=== PATIENT | female | born 1960 ===

== ENCOUNTER 2017-08-17 10:30 | Inpatient (IN) | payer MEDICARE, BC ==
[2017-08-15 18:13] VITALS: BMI 22.6
--- NOTE | 2017-08-17 11:07 | CP.PCM.HP ---
History of Present Illness - History of Present Illness History of Present Illness: CC - needs dialysis HPI - 57 year old female with past medical history as listed below was admitted to [facility] for shortness of breath. Patient is requiring dialysis today and was transferred here to [facility] for that. She will be transferred back to [place] after dialysis. No complaints at this time. PMHx - ESRD on dialysis (T, Th, Sat), pulmonary edema, hypertension, cirrhosis, CHF, COPD, and gastritis, hyperlipidemia Meds - per EMR Surg - c sections x 2, cholecystectomy, b/l hip surgery, tonsillectomy, fistula Allergies - ASA, cipro, citrus, enalapril, heparin, latex, pEN, sulfa, vevothyroxine, tylenol, codeine, lovenox, iodine, flu vaccine Social - denies alcohol or drugs use, smokes 1/2 pack of cigarettes daily PMD - Dr. Skelton Present on Admission - Present on Admission Any Indicators Present on Admission: No Review of Systems - Constitutional Constitutional: As Per HPI. absent: Chills, Fever - Cardiovascular Cardiovascular: absent: Chest Pain, Chest Pain at Rest - Respiratory Respiratory: absent: Dyspnea, Dyspnea on Exertion - Gastrointestinal Gastrointestinal: absent: Abdominal Pain - Neurological Neurological: absent: Dizziness, Numbness, Weakness Past Patient History - Infectious Disease Hx of Infectious Diseases: None - Tetanus Immunizations Tetanus Immunization: Up to Date - Past Medical History & Family History Past Medical History?: Yes - Past Social History Smoking Status: Former Smoker - CARDIAC Hx Cardiac Disorders: Yes Hx Congestive Heart Failure: Yes Hx Hypertension: Yes - PULMONARY Hx Respiratory Disorders: Yes Hx Chronic Obstructive Pulmonary Disease (COPD): Yes - NEUROLOGICAL Hx Neurological Disorder: No - HEENT Hx HEENT Problems: Yes Hx Blind: Yes (partial, left eye) - RENAL Hx Chronic Kidney Disease: Yes Hx Dialysis: Yes Date of Last Dialysis Treatment: 07/25/17 Hx Renal Failure: Yes (Hemodialysis (T, TH,Sat)-SHUNT LEFT UPPER ARM.) - ENDOCRINE/METABOLIC Hx Endocrine Disorders: Yes (parathyroid) - HEMATOLOGICAL/ONCOLOGICAL Hx Blood Disorders: Yes Hx Anemia: Yes - INTEGUMENTARY Hx Dermatological Problems: Yes (LEFT UPPER ARM SHUNT) Other/Comment: CALCIPHYLAXIS-DRY ROUND RASH ALL OVER HER BODY,ARMS,LEG. BILATERAL LEG EDEMA +3,SKIN TIGHTNESS,DISCOLORED DARK BROWN SKIN.TIGHT. - MUSCULOSKELETAL/RHEUMATOLOGICAL Hx Falls: Yes - GASTROINTESTINAL Hx Gastrointestinal Disorders: Yes (GI BLEED,SBO,APPENDICITIS,GIBBONS'S ESOPHAGUS) - GENITOURINARY/GYNECOLOGICAL Hx Genitourinary Disorders: Yes (OLIGURIA) - PSYCHIATRIC Hx Psychophysiologic Disorder: Yes (SMOKED CIGARETTES QUIT ) Hx Substance Use: No - SURGICAL HISTORY Hx Section: Yes (x2) Hx Cholecystectomy: Yes Hx Orthopedic Surgery: Yes (bilateral hips 05/19) Hx Tonsillectomy: Yes Other/Comment: left arm fistula/bicep - ANESTHESIA Hx Anesthesia Reactions: No Hx Malignant Hyperthermia: No Meds Allergies/Adverse Reactions: Allergies Allergy/AdvReac Type Severity Reaction Status Date / Time aspirin Allergy Severe ANAPHYLAXIS Verified 08/15/17 17:41 ciprofloxacin Allergy Severe ANAPHYLAXIS Verified 08/15/17 17:41 [place] And Derivatives Allergy Severe ANAPHYLAXIS Verified 08/15/17 17:41 enalapril Allergy Severe HIVES Verified 08/15/17 17:41 heparin Allergy Severe ANAPHYLAXIS Verified 08/15/17 17:41 latex Allergy Severe ANAPHYLAXIS Verified 08/15/17 17:41 Penicillins Allergy Severe ANAPHYLAXIS Verified 08/15/17 17:41 Sulfa (Sulfonamide Allergy Severe ANAPHYLAXIS Verified 08/15/17 17:41 Antibiotics) levothyroxine sodium Allergy Intermediate RASH Verified 08/15/17 17:41 [From Levoxyl] acetaminophen Allergy Mild RASH Verified 08/15/17 17:41 codeine Allergy Mild RASH Verified 08/15/17 17:41 enoxaparin Allergy Mild RASH Verified 08/15/17 17:41 iodine Allergy Mild RASH Verified 08/15/17 17:41 influenza virus vaccine, Allergy hives Verified 08/15/17 17:41 specific Physical Exam - Constitutional Appears: Non-toxic, No Acute Distress - Head Exam Head Exam: ATRAUMATIC, NORMAL INSPECTION - Eye Exam Eye Exam: EOMI - ENT Exam ENT Exam: Mucous Membranes Moist - Respiratory Exam Additional comments: b/l mild to lower lung field inspriatory crackles - Cardiovascular Exam Cardiovascular Exam: REGULAR RHYTHM, +S1, +S2 - GI/Abdominal Exam GI & Abdominal Exam: Normal Bowel Sounds, Soft. absent: Tenderness - Extremities Exam Additional comments: b/l lower leg pitting non pitting edema, left arm AVF thrill - Back Exam Back exam: NORMAL INSPECTION - Neurological Exam Neurological exam: Alert, Oriented x3 - Psychiatric Exam Psychiatric exam: Normal Affect, Normal Mood Assessment & Plan - Assessment and Plan (Free Text) Assessment: ESRD on dialysis Dr. Williamson consulted for dialysis orders. Patient to be dischagred back to [place] post dialysis Discussed with Dr. Reynaldo Rogers.
--- NOTE | 2017-08-17 11:15 | CP.PCM.DIS ---
Provider - Provider Date of Admission: 08/17/17 10:30 Attending physician: Tae Rogers MD Primary care physician: Dr. Skelton Consults: Dr. Williamson - nephrology Time Spent in preparation of Discharge (in minutes): 35 Diagnosis - Discharge Diagnosis (1) ESRD (end stage renal disease) Status: Acute Hospital Course - Hospital Course Hospital Course: CC - needs dialysis HPI - 57 year old female with past medical history as listed below was admitted to [facility] for shortness of breath. Patient is requiring dialysis today and was transferred here to [facility] for that. She will be transferred back to [place] after dialysis. No complaints at this time. PMHx - ESRD on dialysis (T, Th, Sat), pulmonary edema, hypertension, cirrhosis, CHF, COPD, and gastritis, hyperlipidemia Meds - per EMR Surg - c sections x 2, cholecystectomy, b/l hip surgery, tonsillectomy, fistula Allergies - ASA, cipro, citrus, enalapril, heparin, latex, pEN, sulfa, vevothyroxine, tylenol, codeine, lovenox, iodine, flu vaccine Social - denies alcohol or drugs use, smokes 1/2 pack of cigarettes daily PMD - Dr. Skelton Patient had dialysis in the hospital and was discharged after dialysis. Discharge Exam - Head Exam Head Exam: ATRAUMATIC, NORMAL INSPECTION - Eye Exam Eye Exam: EOMI Pupil Exam: NORMAL ACCOMODATION - Respiratory Exam Respiratory Exam: NORMAL BREATHING PATTERN Additional comments: b/l mid to lower lung field inspiratory crackles - Cardiovascular Exam Cardiovascular Exam: REGULAR RHYTHM, +S1, +S2 - GI/Abdominal Exam GI & Abdominal Exam: Normal Bowel Sounds, Soft. absent: Tenderness - Extremities Exam Additional comments: b/l lower leg pitting non pitting edema, left arm AVF thrill Discharge Plan - Follow Up Plan Condition: GOOD Disposition: HOME/ ROUTINE Instructions: Renal Failure Diet (DC)
[2017-08-17 12:34] VITALS: PULSE 70; TEMP 97.5; O2SAT 96
--- NOTE | 2017-08-17 13:30 | CP.PCM.CON ---
History of Present Illness - History of Present Illness History of Present Illness: Consult for ESRD HPI - 57 year old female with past medical history of ESRD that [facility]. She is a pt o fDr. Lauren. She was transferred to [facility] for acute HD. She denies n/v. She states her breathing is mildly improved sine her admission. She denies any fever or chills. She states she is compliant w/ hd. She had 2 hours o fHd yesterday and was scheduled for 2 hours today. ros: a full detailed ROS is negative except as in my hpi PMHx - ESRD on dialysis (T, Th, Sat), CHF, HTN, liver disease COPD, and gastritis, hyperlipidemia Meds - see below all: as below Social - denies alcohol or drugs use, smokes 1/2 pack of cigarettes daily famhx: no esrd pe:vs as below gen: nad sclera anicteric op clear neck supple cv: +s1+s2 lungs reduced bs at bases abd soft ext: 1+ edema neuro: a+ox3 psych: flat affect skin: eyrthema lower extremity labs and imaging reviewed imp: esrd / volume overload / chf / anemia / secondary hyperpara plan: hd 2 kg uf monitor volume status post hd aranesp weekly phos at goal. f/u w/ Dr. Lauren after transfer to [place]. Past Patient History - Infectious Disease Hx of Infectious Diseases: None - Tetanus Immunizations Tetanus Immunization: Up to Date - Past Medical History & Family History Past Medical History?: Yes - Past Social History Smoking Status: Former Smoker - CARDIAC Hx Cardiac Disorders: Yes Hx Congestive Heart Failure: Yes Hx Hypertension: Yes - PULMONARY Hx Respiratory Disorders: Yes Hx Chronic Obstructive Pulmonary Disease (COPD): Yes - NEUROLOGICAL Hx Neurological Disorder: No - HEENT Hx HEENT Problems: Yes Hx Blind: Yes (partial, left eye) - RENAL Hx Chronic Kidney Disease: Yes Hx Dialysis: Yes Date of Last Dialysis Treatment: 07/25/17 Hx Renal Failure: Yes (Hemodialysis (T, TH,Sat)-SHUNT LEFT UPPER ARM.) - ENDOCRINE/METABOLIC Hx Endocrine Disorders: Yes (parathyroid) - HEMATOLOGICAL/ONCOLOGICAL Hx Blood Disorders: Yes Hx Anemia: Yes - INTEGUMENTARY Hx Dermatological Problems: Yes (LEFT UPPER ARM SHUNT) Other/Comment: CALCIPHYLAXIS-DRY ROUND RASH ALL OVER HER BODY,ARMS,LEG. BILATERAL LEG EDEMA +3,SKIN TIGHTNESS,DISCOLORED DARK BROWN SKIN.TIGHT. - MUSCULOSKELETAL/RHEUMATOLOGICAL Hx Falls: Yes - GASTROINTESTINAL Hx Gastrointestinal Disorders: Yes (GI BLEED,SBO,APPENDICITIS,GIBBONS'S ESOPHAGUS) - GENITOURINARY/GYNECOLOGICAL Hx Genitourinary Disorders: Yes (OLIGURIA) - PSYCHIATRIC Hx Psychophysiologic Disorder: Yes (SMOKED CIGARETTES QUIT ) Hx Substance Use: No - SURGICAL HISTORY Hx Section: Yes (x2) Hx Cholecystectomy: Yes Hx Orthopedic Surgery: Yes (bilateral hips 05/19) Hx Tonsillectomy: Yes Other/Comment: left arm fistula/bicep - ANESTHESIA Hx Anesthesia Reactions: No Hx Malignant Hyperthermia: No Meds Allergies/Adverse Reactions: Allergies Allergy/AdvReac Type Severity Reaction Status Date / Time aspirin Allergy Severe ANAPHYLAXIS Verified 08/15/17 17:41 ciprofloxacin Allergy Severe ANAPHYLAXIS Verified 08/15/17 17:41 [place] And Derivatives Allergy Severe ANAPHYLAXIS Verified 08/15/17 17:41 enalapril Allergy Severe HIVES Verified 08/15/17 17:41 heparin Allergy Severe ANAPHYLAXIS Verified 08/15/17 17:41 latex Allergy Severe ANAPHYLAXIS Verified 08/15/17 17:41 Penicillins Allergy Severe ANAPHYLAXIS Verified 08/15/17 17:41 Sulfa (Sulfonamide Allergy Severe ANAPHYLAXIS Verified 08/15/17 17:41 Antibiotics) levothyroxine sodium Allergy Intermediate RASH Verified 08/15/17 17:41 [From Levoxyl] acetaminophen Allergy Mild RASH Verified 08/15/17 17:41 codeine Allergy Mild RASH Verified 08/15/17 17:41 enoxaparin Allergy Mild RASH Verified 08/15/17 17:41 iodine Allergy Mild RASH Verified 08/15/17 17:41 influenza virus vaccine, Allergy hives Verified 08/15/17 17:41 specific Results - Vital Signs Recent Vital Signs: Last Vital Signs Temp 97.5 F L 08/17/17 11:00 Pulse 70 08/17/17 11:00 Resp 16 08/17/17 12:25 BP 137/75 08/17/17 12:25 Pulse Ox 96 08/17/17 12:25
--- NOTE | 2017-08-17 13:32 | CP.PCM.PN ---
Subjective - Date & Time of Evaluation Date of Evaluation: 08/17/17 Time of Evaluation: 13:05 - Subjective Subjective: DIALYSIS NOTE seen on dialysis 2kg uf 2 hours treatment Objective - Vital Signs/Intake and Output Vital Signs (last 24 hours): Temp Pulse Resp BP Pulse Ox 97.5 F L 70 16 137/75 96 08/17/17 11:00 08/17/17 11:00 08/17/17 12:25 08/17/17 12:25 08/17/17 12:25
[2017-08-17 13:51] VITALS: BP 137/70; RESP 18
== END 2017-08-17 14:36 | disposition home or self-care (01) | DRG 291 ==
LOC: C.3T 10:30
PROVIDERS: ADMIT Family Medicine; ATTEND Family Medicine
PROC: 5A1D70Z Performance of Urinary Filtration, Intermittent, Less than 6 Hours Per Day (ICD-10-PCS; principal; 2017-08-17)
DX: I13.2 Hypertensive heart and chronic kidney disease with heart failure and with stage 5 chronic kidney disease, or end stage renal disease (principal); N18.6 End stage renal disease; I50.9 Heart failure, unspecified; H54.7 Unspecified visual loss; J44.9 Chronic obstructive pulmonary disease, unspecified; E78.5 Hyperlipidemia, unspecified; D64.9 Anemia, unspecified; K74.60 Unspecified cirrhosis of liver; Z99.2 Dependence on renal dialysis; K22.70 Barrett's esophagus without dysplasia; F17.210 Nicotine dependence, cigarettes, uncomplicated

== ENCOUNTER 2017-09-28 22:07 | Inpatient (IN) | payer MEDICARE, BC ==
[2017-09-28 22:08] VITALS: BMI 22.9
--- NOTE | 2017-09-28 22:36 | C.PDOC ---
History Of Present Illness 57 year old female with ESRD currently on dialysis on Saturday, , Saturday is a transfer from [facility] ED. Patient had her dialysis done today during which she started c/o SOB and CP. Patient had work up done at [facility] revealing of a reported whiteout of the lungs. Lab work was unremarkable, normal white count, mild anemia. Patient was afebrile but was initiated on antibiotics for pneumonia. Patient was sent to the ED for further evaluation, attending at [facility] felt like patient should be admitted to a facility that provided dialysis. PMD: Dr. Carey. Chip Drier: Dr. Lauren Tax Collection Coordinator: Dr. Bledsoe Time Seen by Provider: 09/28/17 22:16 Chief Complaint (Nursing): Chest Pain History Per: Patient History/Exam Limitations: no limitations Onset/Duration Of Symptoms: Hrs Current Symptoms Are (Timing): Still Present Quality: "Pain" Associated Symptoms: denies: Nausea, Dyspnea Modifying Factors: None Exacerbating Factors: None Recent travel outside of the [place]: No Additional History Per: Patient Past Medical History Reviewed: Historical Data, Nursing Documentation, Vital Signs Vital Signs: Last Vital Signs Temp 98.0 F 09/28/17 23:37 Pulse 101 H 09/29/17 00:41 Resp 20 09/29/17 00:41 BP 159/84 H 09/28/17 23:37 Pulse Ox 95 09/28/17 23:37 - Medical History PMH: Anemia, Arthritis (hips), Asthma, Bronchitis, Cardia Arrhythmia, CHF, COPD , Crohn's Disease, Gastrointestinal Ulcer (barretts esophagus), Gall Bladder Disease (GALLSTONES), HTN, Hypercholesterolemia, Hypothyroidism, Pancreatitis, Peripheral Edema, Pneumonia, End Stage Renal Disease, Chronic Kidney Disease Denies: Alzheimer's Disease, Anxiety, Bipolar Disorder, Dementia, Depression , Diverticulitis, Emphysema, Fibromyalgia, Fractures, HIV, Hyperthyroidism, Kidney Stones, Migraine, Mitral Valve Prolapse, Osteoporosis, Paranoia, Parkinson's Disease, Post Traumatic Stress Disorder, Schizophrenia, Seizures, Sickle Cell Disease, Sexually Transmitted Disease, Sleep Apnea, TIA Surgical History: Cholecystectomy, Tonsillectomy Denies: Appendectomy, Coronary Stent, Pacemaker - [facility] Procedures (08/23/17) CLOSED ENDOSCOPIC BIOPSY OF LARGE INTESTINE (08/02/11) CONTROL BLEEDING IN GASTROINTESTINAL TRACT, ENDO (02/14/17) CORONAR ARTERIOGR-2 CATH (11/26/13) DRAINAGE OF STOMACH WITH DRAINAGE DEVICE, VIA OPENING (01/04/17) DRESSING TECHNIQUES TREATMENT (02/22/17) DX ULTRASOUND-DIGESTIVE (11/09/14) ESOPHAGOGASTRODUODENOSCOPY [EGD] W/CLOSED BIOPSY (11/09/14) EXCISION OF STOMACH, ENDO, DIAGN (05/08/16) FLUOROSCOPY OF LEFT HEART USING LOW OSMOLAR CONTRAST (02/14/17) FLUOROSCOPY OF MULT COR ART USING L OSM CONTRAST (02/14/17) GAIT TRAINING/AMBULAT TREATMENT USING ASSIST EQUIPMENT (02/22/17) GROOMING/PERSONAL HYGIENE TREATMENT (02/22/17) HEMODIALYSIS (05/25/14) INJECT/INFUSE NEC (12/11/14) INSERT INTERCOSTAL CATH (07/14/13) INSPECTION OF UPPER INTESTINAL TRACT, ENDO (06/04/17) INTRAOPER CHOLANGIOGRAM (05/25/14) INTRODUCE OF OTH THERAP SUBST INTO RESP TRACT, VIA OPENING (03/23/17) LAPAROSCOP LYSIS-PERITONEAL ADHES (05/25/14) LAPAROSCOPIC CHOLECYSTECTOMY (05/25/14) LAPAROSCOPIC INCISIONAL HERNIA REPAIR W GRAFT OR PROSTHESIS (10/26/14) LEFT HEART CARDIAC CATH (11/26/13) LT HEART ANGIOCARDIOGRAM (11/26/13) MEASURE CARDIAC SAMPL & PRESSURE, BILATERAL, PERC (02/14/17) NEBULIZER THERAPY (06/28/13) PACKED CELL TRANSFUSION (07/14/13) PERFORMANCE OF URINARY FILTRATION, MULTIPLE (11/01/16) PERICARDIAL BIOPSY (07/14/13) PERICARDIOTOMY (07/14/13) REMOVE INT FIX DEV-FEMUR (11/25/12) SOFT TISSUE INCISION NEC (01/05/14) THERAPEUTIC ERYTHROCYTAPHERESIS (07/14/13) THERAPEUTIC EXERCISE TREATMENT OF MUSCULOSK WHOLE (02/22/17) TRANSFUSE NONAUT RED BLOOD CELLS IN PERIPH VEIN, PERC (08/23/17) ULTRASONOGRAPHY OF RIGHT AND LEFT HEART, TRANSESOPHAGEAL (08/23/17) Family History: States: Unknown Family Hx - Social History Hx Tobacco Use: No Hx Alcohol Use: No Hx Substance Use: No - Immunization History Hx Tetanus Toxoid Vaccination: No Hx Influenza Vaccination: No Hx Pneumococcal Vaccination: No Review Of Systems Constitutional: Negative for: Fever, Chills Cardiovascular: Positive for: Chest Pain. Negative for: Palpitations Respiratory: Positive for: Shortness of Breath. Negative for: Cough Gastrointestinal: Negative for: Nausea, Vomiting, Abdominal Pain Skin: Negative for: Rash Neurological: Negative for: Weakness, Numbness Physical Exam - Physical Exam Appears: Non-toxic, Other (Mild respiratory distress) Skin: Normal Color, Warm, Dry Head: Atraumatic, Normacephalic Eye(s): bilateral: Normal Inspection Oral Mucosa: Moist Neck: Normal ROM, Supple Chest: Symmetrical Cardiovascular: Rhythm Regular, JVD (at 30 degree elevation of head) Respiratory: Rales (mid lung taylor B/L), No Rhonchi, No Wheezing Gastrointestinal/Abdominal: Soft, No Tenderness, No Guarding, No Rebound Extremity: Normal ROM, No Tenderness, Pedal Edema (1,2+ bilateral), Capillary Refill (< 2 seconds) Pulses: Left Dorsalis Pedis: Normal, Right Dorsalis Pedis: Normal Neurological/Psych: Oriented x3, Normal Speech, Normal Cranial Nerves Gait: Steady ED Course And Treatment ECG: Interpreted By Me, Viewed By Me ECG Rhythm: Sinus Tachycardia Interpretation Of ECG: Flipped Ts in lead V5- V6. News as compared to July 2017. Rate From EC (BPM) O2 Sat by Pulse Oximetry: 95 (ON RA) Pulse Ox Interpretation: Normal Critical Care Time - Critical Care Note Total Time (in mins): 45 Documented critical care: time excludes all time spent performing seperately billable procedures. Medical Decision Making Medical Decision Making: Impression: CHF still urinates Plan: * EKG * Bumex 1 mg IVP * Lasix 40 mg IVP [facility] labs showed * K 3.3 * BUN and Creat 12 and 1.7 * Trop 0.09 * BNP 324,000 10:45 - called Dr. Acosta medicine flotation tender helper who will take the patient to his service 10:55- called Dr. Kitchen ICU who will come down and evaluate the patient 11:00 - called Dr. Gregg nephrology flotation tender helper and informed about the patient Patient does not required immediate dialysis right now, but will need it at some point. Disposition - Disposition Disposition: HOSPITALIZED Disposition Time: 06:21 Condition: FAIR - Clinical Impression Clinical Impression: Congestive heart failure, Pulmonary edema - Scribe Statement The provider has reviewed the documentation as recorded by the Scribe Mandeep [place] All medical record entries made by the Scribe were at my direction and personally dictated by me. I have reviewed the chart and agree that the record accurately reflects my personal performance of the history, physical exam, medical decision making, and the department course for this patient. I have also personally directed, reviewed, and agree with the discharge instructions and disposition.
--- NOTE | 2017-09-28 23:36 | CP.PCM.CON ---
History of Present Illness - History of Present Illness History of Present Illness: Attending: Dr Acosta PMD: Dr Brice Boring Machine Set Up Operator: Dr Lauren Reason for Consult: Evaluation for ICU Chief Complaint: SOB/Chest pain The patient was seen and examined in the ED HPI: The hx is obtained from the patient and after review of the medical records. She is a 57 years old female with hx of Gastritis, CHF, COPD, ESRD on HD. She was transferred from the [facility] for Evaluation and Hemodialysis. The patient refereed going to HD with SOB. While there she developed a Chest pain but was able to complete 3.5hours of dialysis. She was taken to the ED after the [employer] N[employer] WHIPPER was called for Chest pain and SOB. With the CXR finding of diffuse interstitial infiltrate in whole of both ling taylor, The patient was transferred to the [facility] for further evaluation and Hemodialysis. In this ED the patient was awake , alert, talking in full sentences with no apparent SOB while on the Stretcher and mentioning that she feels improved. PMH: HTN; ESRD on HD TTSa; COPD; CHF; Cirrhosis; Gastritis; HLD; Partial left eye blindness; GI bleed, Chronic Pancreatitis PSH: Right THR/Bilateral hip surgery; Section X2; Cholecystectomy; Tonsillectiomy; Left AV Fistula; Pericardial effusion drainage SH: Former Smoker; Occasional Alcohol FH: States: no known medical hx Allergies - ASA, cipro, citrus, enalapril, heparin, latex, pEN, sulfa, vevothyroxine, tylenol, codeine, lovenox, iodine, flu vaccine Medication: Reviewed Review of Systems - Constitutional Constitutional: Anorexia. absent: Chills, Daytime Sleepiness, Fever - EENT Eyes: Requires Corrective Lenses. absent: Diplopia, Floaters Nose/Mouth/Throat: Epistaxis. absent: Nasal Congestion, Nasal Trauma, Sinus Pain, Sinus Pressure - Cardiovascular Cardiovascular: Chest Pain, Dyspnea, Edema, Lightheadedness - Respiratory Respiratory: Dyspnea, Hemoptysis, Wheezing, Snoring. absent: Cough - Gastrointestinal Additional comments: Epigastric pains on palpation, no rebound nor guarding - Genitourinary Genitourinary: absent: Dysuria, Flank Pain, Hematuria - Musculoskeletal Musculoskeletal: Arthralgias Additional comments: Pain down both lower extremities Bilateral Pedal edema - Integumentary Integumentary: Skin Ulcer, Swelling. absent: Striae - Neurological Neurological: Headaches. absent: Confusion, Dizziness, Focal Weakness - Psychiatric Psychiatric: absent: Anxiety, Depression, Mood Swings - Endocrine Endocrine: absent: Palpitations, Polydipsia, Polyphagia, Polyuria - Hematologic/Lymphatic Hematologic: absent: Easy Bruising Past Patient History - Infectious Disease Hx of Infectious Diseases: None - Tetanus Immunizations Tetanus Immunization: Up to Date - Past Medical History & Family History Past Medical History?: Yes - Past Social History Smoking Status: Former Smoker Alcohol: None Drugs: Denies, Inhalants - CARDIAC Hx Cardia Arrhythmia: Yes Hx Congestive Heart Failure: Yes Hx Hypercholesterolemia: Yes Hx Hypertension: Yes Hx Mitral Valve Prolapse: No Hx Pacemaker: No Hx Peripheral Edema: Yes - PULMONARY Hx Asthma: Yes Hx Bronchitis: Yes Hx Chronic Obstructive Pulmonary Disease (COPD): Yes Hx Emphysema: No Hx Pneumonia: Yes Hx Sleep Apnea: No - NEUROLOGICAL Hx Alzheimer's Disease: No Hx Dementia: No Hx Migraine: No Hx Parkinson's Disease: No Hx Seizures: No Hx Transient Ischemic Attacks (TIA): No - HEENT Hx HEENT Problems: Yes Hx Blind: Yes (partial, left eye) - RENAL Hx Chronic Kidney Disease: Yes Hx Kidney Stones: No - ENDOCRINE/METABOLIC Hx Hyperthyroidism: No Hx Hypothyroidism: Yes - HEMATOLOGICAL/ONCOLOGICAL Hx Anemia: Yes Hx Human Immunodeficiency Virus (HIV): No Hx Sickle Cell Disease: No - INTEGUMENTARY Hx Dermatological Problems: Yes (LEFT UPPER ARM SHUNT) Other/Comment: CALCIPHYLAXIS-DRY ROUND RASH ALL OVER HER BODY,ARMS,LEG. BILATERAL DISCOLORED DARK BROWN SKIN.TIGHT. - MUSCULOSKELETAL/RHEUMATOLOGICAL Hx Arthritis: Yes (hips) Hx Fractures: No Hx Osteoporosis: No - GASTROINTESTINAL Hx Crohn's Disease: Yes Hx Diverticulitis: No Hx Gall Bladder Disease: Yes (GALLSTONES) Hx Pancreatitis: Yes - GENITOURINARY/GYNECOLOGICAL Hx Sexually Transmitted Disorders: No - PSYCHIATRIC Hx Anxiety: No Hx Bipolar Disorder: No Hx Depression: No Hx Paranoia: No Hx Post Traumatic Stress Disorder: No Hx Schizophrenia: No Hx Substance Use: No - SURGICAL HISTORY Hx Appendectomy: No Hx Cholecystectomy: Yes Hx Coronary Stent: No Hx Tonsillectomy: Yes - ANESTHESIA Hx Anesthesia Reactions: No Meds Allergies/Adverse Reactions: Allergies Allergy/AdvReac Type Severity Reaction Status Date / Time aspirin Allergy Severe ANAPHYLAXIS Verified 09/28/17 22:30 ciprofloxacin Allergy Severe ANAPHYLAXIS Verified 09/28/17 22:30 [place] And Derivatives Allergy Severe ANAPHYLAXIS Verified 09/28/17 22:30 enalapril Allergy Severe HIVES Verified 09/28/17 22:30 heparin Allergy Severe ANAPHYLAXIS Verified 09/28/17 22:30 latex Allergy Severe ANAPHYLAXIS Verified 09/28/17 22:30 Penicillins Allergy Severe ANAPHYLAXIS Verified 09/28/17 22:30 Sulfa (Sulfonamide Allergy Severe ANAPHYLAXIS Verified 09/28/17 22:30 Antibiotics) levothyroxine sodium Allergy Intermediate RASH Verified 09/28/17 22:31 [From Levoxyl] acetaminophen Allergy Mild RASH Verified 09/28/17 22:31 codeine Allergy Mild RASH Verified 09/28/17 22:31 enoxaparin Allergy Mild RASH Verified 09/28/17 22:31 iodine Allergy Mild RASH Verified 09/28/17 22:31 influenza virus vaccine, Allergy hives Verified 09/28/17 22:31 specific Physical Exam - Constitutional Appears: Non-toxic, No Acute Distress - Head Exam Head Exam: ATRAUMATIC, NORMAL INSPECTION, NORMOCEPHALIC - Eye Exam Eye Exam: EOMI, Normal appearance Pupil Exam: NORMAL ACCOMODATION, PERRL - ENT Exam ENT Exam: Mucous Membranes Moist, Normal Exam - Neck Exam Neck exam: Positive for: Full Rom, Normal Inspection. Negative for: Lymphadenopathy, Tenderness - Respiratory Exam Additional comments: Diffuse rales in both lung taylor No wheezes - GI/Abdominal Exam GI & Abdominal Exam: Normal Bowel Sounds, Soft. absent: Organomegaly - Rectal Exam Rectal Exam: Deferred - Extremities Exam Additional comments: 2+pedal edema bilaterally - Back Exam Back exam: CVA tenderness (L), CVA tenderness (R), NORMAL INSPECTION - Neurological Exam Neurological exam: CN II-XII Intact, Normal Gait, Oriented x3, Reflexes Normal - Psychiatric Exam Psychiatric exam: Normal Affect, Normal Mood - Skin Additional comments: Hyperpigmentation at both lower extremities Results - Vital Signs Recent Vital Signs: Last Vital Signs Temp 98.9 F 09/28/17 22:10 Pulse 107 H 09/28/17 23:25 Resp 17 09/28/17 23:25 BP 165/82 H 09/28/17 23:25 Pulse Ox 95 09/28/17 23:25 - Labs Labs: Hb 9.1 Ht 29 Creatinine 1.7 BUN 12 [id number] Potassium 3.3 Troponin : 0.09 Pro BNP: [id number] - Imaging and Cardiology CT scan - chest Status: Image reviewed by me Additional comment: Diffuse interstitial infiltraes in whole of both lung taylor Assessment & Plan - Assessment and Plan (Free Text) Plan: 57 years old female with hx of Gastritis, CHF, COPD, ESRD on HD. She was transferred from the [facility] for Evaluation and Hemodialysis. The patient refereed going to HD with SOB. While there she developed a Chest pain but was able to complete 3.5hours of dialysis. She was taken to the ED after the [employer] N[employer] WHIPPER was called for Chest pain and SOB. With the CXR finding of diffuse interstitial infiltrate in whole of both ling taylor, The patient was transferred to the [facility] for further evaluation and Hemodialysis. In this ED the patient was awake , alert, talking in full sentences with no apparent SOB while on the Stretcher and mentioning that she feels improved. #. Chest pain. No Chest pain at this exam. The patient points to the epigastrium as the site of the previous pain, This coulbe due to Gastritis verses pain from cardiac pathology,Follow Troponins - Treat for gastritis #. Acute CHF/Volume overload, Causing the SOB - The patient does not need an Urgent dialysis - [facility] ED gave Lasix and Bumex - Continue Home medication #.ESRD on HD - Consult Nephrology for Dialysis #. HTN - Continue Home mediation #. Hypokalemia - Follow Elecrolytes This patient who is alert and oriented with no Chest pain , SOB , Hypotensive nor Hypertensive is stable, medically and does not need to be admitted to the Intensive Care Unit for treatment. Her Cardiac labs could be done along with scheduled Hemodialysi on the Telemetry floor being monitored. Jatinder Kitchen MD - Date & Time Date: 09/28/17 Time: 23:36
--- NOTE | 2017-09-29 06:11 | CP.PCM.CON ---
History of Present Illness - History of Present Illness History of Present Illness: 57 years old female with hx of Gastritis, CHF, COPD, ESRD on HD. She was transferred from the [facility] for Evaluation and Hemodialysis. The patient went to outpatient HD with SOB. While there she developed Chest pain but was able to complete 3.5hours of dialysis. She was taken to the ED after the TOPOGRAPHICAL SURVEYOR was called for Chest pain and SOB. CP substernal, without radiation, sharp sensation. No associated fever or chills, no n/v/d. With the CXR finding of diffuse interstitial infiltrate in whole of both ling taylor, The patient was transferred to the [facility] for further evaluation and Hemodialysis. In this ED the patient was awake , alert, talking in full sentences with no apparent SOB while on the Stretcher and mentioning that she feels improved. She reports urine output after diuretics given in ed. 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 PMH: HTN; ESRD on HD TTSa; COPD; CHF; Cirrhosis; Gastritis; HLD; Partial left eye blindness; GI bleed, Chronic Pancreatitis PSH: Right THR/Bilateral hip surgery; Section X2; Cholecystectomy; Tonsillectiomy; Left AV Fistula; Pericardial effusion drainage SH: Former Smoker; Occasional Alcohol FH: States: no known medical hx Allergies - ASA, cipro, citrus, enalapril, heparin, latex, pEN, sulfa, vevothyroxine, tylenol, codeine, lovenox, iodine, flu vaccine Medication: Reviewed Review of Systems - Constitutional Constitutional: absent: Anorexia, Chills, Fever, Headache, Night Sweats - EENT Eyes: Loss of Vision. absent: Dry Eye Ears: absent: Decreased Hearing, Ear Discharge, Ear Pain, Dizziness Nose/Mouth/Throat: absent: Nasal Congestion, Nose Pain, Sinus Pressure, Neck Pain - Cardiovascular Cardiovascular: Chest Pain, Dyspnea, Pedal Edema. absent: Diaphoresis - Respiratory Respiratory: Dyspnea, Wheezing - Gastrointestinal Gastrointestinal: absent: Constipation, Diarrhea, Nausea, Vomiting - Genitourinary Genitourinary: absent: Flank Pain, Hematuria, Pyuria - Musculoskeletal Musculoskeletal: absent: Back Pain, Muscle Weakness, Neck Pain - Integumentary Integumentary: absent: Dry Skin, Lesions, Sores - Neurological Neurological: absent: Confusion, Convulsions, Headaches, Syncope - Psychiatric Psychiatric: absent: Anxiety, Confusion, Depression - Endocrine Endocrine: absent: Polydipsia, Polyphagia - Hematologic/Lymphatic Hematologic: absent: Easy Bleeding, Lymphadenopathy Past Patient History - Infectious Disease Hx of Infectious Diseases: None - Tetanus Immunizations Tetanus Immunization: Up to Date - Past Medical History & Family History Past Medical History?: Yes - Past Social History Smoking Status: Former Smoker Alcohol: None Drugs: Denies, Inhalants - CARDIAC Hx Cardia Arrhythmia: Yes Hx Congestive Heart Failure: Yes Hx Hypercholesterolemia: Yes Hx Hypertension: Yes Hx Mitral Valve Prolapse: No Hx Pacemaker: No Hx Peripheral Edema: Yes - PULMONARY Hx Asthma: Yes Hx Bronchitis: Yes Hx Chronic Obstructive Pulmonary Disease (COPD): Yes Hx Emphysema: No Hx Pneumonia: Yes Hx Sleep Apnea: No - NEUROLOGICAL Hx Alzheimer's Disease: No Hx Dementia: No Hx Migraine: No Hx Parkinson's Disease: No Hx Seizures: No Hx Transient Ischemic Attacks (TIA): No - HEENT Hx HEENT Problems: Yes Hx Blind: Yes (partial, left eye) - RENAL Hx Chronic Kidney Disease: Yes Hx Kidney Stones: No - ENDOCRINE/METABOLIC Hx Hyperthyroidism: No Hx Hypothyroidism: Yes - HEMATOLOGICAL/ONCOLOGICAL Hx Anemia: Yes Hx Human Immunodeficiency Virus (HIV): No Hx Sickle Cell Disease: No - INTEGUMENTARY Hx Dermatological Problems: Yes (LEFT UPPER ARM SHUNT) Other/Comment: CALCIPHYLAXIS-DRY ROUND RASH ALL OVER HER BODY,ARMS,LEG. BILATERAL DISCOLORED DARK BROWN SKIN.TIGHT. - MUSCULOSKELETAL/RHEUMATOLOGICAL Hx Arthritis: Yes (hips) Hx Fractures: No Hx Osteoporosis: No - GASTROINTESTINAL Hx Crohn's Disease: Yes Hx Diverticulitis: No Hx Gall Bladder Disease: Yes (GALLSTONES) Hx Pancreatitis: Yes - GENITOURINARY/GYNECOLOGICAL Hx Sexually Transmitted Disorders: No - PSYCHIATRIC Hx Anxiety: No Hx Bipolar Disorder: No Hx Depression: No Hx Paranoia: No Hx Post Traumatic Stress Disorder: No Hx Schizophrenia: No Hx Substance Use: No - SURGICAL HISTORY Hx Appendectomy: No Hx Cholecystectomy: Yes Hx Coronary Stent: No Hx Tonsillectomy: Yes - ANESTHESIA Hx Anesthesia Reactions: No Meds Allergies/Adverse Reactions: Allergies Allergy/AdvReac Type Severity Reaction Status Date / Time aspirin Allergy Severe ANAPHYLAXIS Verified 09/28/17 22:30 ciprofloxacin Allergy Severe ANAPHYLAXIS Verified 09/28/17 22:30 [place] And Derivatives Allergy Severe ANAPHYLAXIS Verified 09/28/17 22:30 enalapril Allergy Severe HIVES Verified 09/28/17 22:30 heparin Allergy Severe ANAPHYLAXIS Verified 09/28/17 22:30 latex Allergy Severe ANAPHYLAXIS Verified 09/28/17 22:30 Penicillins Allergy Severe ANAPHYLAXIS Verified 09/28/17 22:30 Sulfa (Sulfonamide Allergy Severe ANAPHYLAXIS Verified 09/28/17 22:30 Antibiotics) levothyroxine sodium Allergy Intermediate RASH Verified 09/28/17 22:31 [From Levoxyl] acetaminophen Allergy Mild RASH Verified 09/28/17 22:31 codeine Allergy Mild RASH Verified 09/28/17 22:31 enoxaparin Allergy Mild RASH Verified 09/28/17 22:31 iodine Allergy Mild RASH Verified 09/28/17 22:31 influenza virus vaccine, Allergy hives Verified 09/28/17 22:31 specific Physical Exam - Constitutional Appears: Non-toxic, Older Than Stated Age - Head Exam Head Exam: NORMAL INSPECTION, NORMOCEPHALIC - Eye Exam Eye Exam: EOMI, Normal appearance Pupil Exam: PERRL - ENT Exam ENT Exam: Mucous Membranes Moist, Normal Oropharynx - Neck Exam Neck exam: Negative for: Lymphadenopathy, Thyromegaly - Respiratory Exam Respiratory Exam: Rales, Rhonchi, Wheezes - Cardiovascular Exam Cardiovascular Exam: Tachycardia, JVD, +S1, +S2 - GI/Abdominal Exam GI & Abdominal Exam: Normal Bowel Sounds, Soft - Extremities Exam Extremities exam: Positive for: pedal edema. Negative for: tenderness - Back Exam Back exam: NORMAL INSPECTION. absent: rash noted - Neurological Exam Neurological exam: Alert, Oriented x3 - Psychiatric Exam Psychiatric exam: Normal Affect, Normal Mood - Skin Skin Exam: Dry, Intact Results - Vital Signs Recent Vital Signs: Last Vital Signs Temp 98.0 F 09/28/17 23:37 Pulse 101 H 09/29/17 00:41 Resp 20 09/29/17 00:41 BP 159/84 H 09/28/17 23:37 Pulse Ox 95 09/28/17 23:37 Assessment & Plan (1) Pulmonary edema cardiac cause Status: Acute (2) Dependence on hemodialysis Status: Acute (3) Anemia Status: Acute (4) CHF (congestive heart failure) Status: Acute (5) ESRD (end stage renal disease) Status: Acute (6) Hypertension Status: Acute (7) FSGS (focal segmental glomerulosclerosis) Status: Acute - Assessment and Plan (Free Text) Assessment: Volume overload with hypertension and chest pain Labs from [facility] reviewed Schedule dialysis today UF 2.5-3 kg as tolerated Evaluate need for bp meds after volume removed ELMA for anemia once oboe corrected Cardiology evaluation needed Phos binder as needed Labs with dialysis
[2017-09-29] MEDS: Ammonium Lactate 12% Lotion (225 g) EXT SCH (10:00)
[2017-09-29 10:18] LABS: HEMOGLOBIN 8.7 g/dL (11.0-16.0); MEAN CELL VOLUME 80.4 fL (81.0-99.0); MEAN CORPUSCULAR HEMOGLOBIN 26.6 pg (27.0-31.0); MEAN PLATELET VOLUME 7.6 fL (7.2-11.7); RBC 3.29 Mil/uL (3.80-5.20); RED CELL DISTRIBUTION WIDTH 19.4 % (11.5-14.5); WHITE BLOOD COUNT 6.2 K/uL (4.8-10.8)
[2017-09-29 10:34] LABS: ALB/GLOB RATIO 1.2 (1.0-2.1); ALBUMIN 3.3 g/dL (3.5-5.0); CALCIUM 9.5 mg/dl (8.6-10.4)
--- NOTE | 2017-09-29 13:39 | RAD ---
HISTORY: Follow up COMPARISON: No prior study available for comparison TECHNIQUE: Chest PA and lateral FINDINGS: LUNGS: Diffuse increased interstitial infiltrates likely representing sequela of pulmonary edema; rule out fluid overload and/or CHF. PLEURA: No significant pleural effusion identified. No pneumothorax apparent. CARDIOVASCULAR: Heart markedly enlarged. Left subclavian and axillary endovascular stent graft present. OSSEOUS STRUCTURES: No significant abnormalities. VISUALIZED UPPER ABDOMEN: Normal. OTHER FINDINGS: None. IMPRESSION: Diffuse increased interstitial infiltrates likely representing sequela of pulmonary edema; rule out fluid overload and/or CHF. Marked cardiomegaly. Left subclavian and left axillary endovascular stent graft
[2017-09-29] MEDS: Pantoprazole 40 mg EC Tab PO SCH (14:28)
[2017-09-29 20:37] LABS: CK-MB 1.04 ng/mL (0.0-3.38); TROPONIN I 0.085 ng/mL (0.00-0.120)
--- NOTE | 2017-09-29 23:57 | CP.PCM.CON ---
History of Present Illness - History of Present Illness History of Present Illness: CC: Dyspnea/Chest Pain 57 year old female with ESRD currently on dialysis on Saturday, , Saturday is a transfer from [facility] ED. Patient had her dialysis done today during which she started c/o SOB and CP. Patient had work up done at [facility] revealing of a reported whiteout of the lungs. Lab work was unremarkable, normal white count, mild anemia. Patient was afebrile but was initiated on antibiotics for pneumonia. Patient was sent to the ED for further evaluation, attending at [facility] felt like patient should be admitted to a facility that provided dialysis. PMD: Dr. Carey. Return To Factory Clerk: Dr. Lauren Palaeontologist: Dr. Bledsoe Chief Complaint (Nursing): Chest Pain History Per: Patient History/Exam Limitations: no limitations Onset/Duration Of Symptoms: Hrs Current Symptoms Are (Timing): Still Present Quality: "Pain" Associated Symptoms: denies: Nausea, Dyspnea Modifying Factors: None Exacerbating Factors: None Recent travel outside of the [place]: No Additional History Per: Patient Past Medical History Reviewed: Historical Data, Nursing Documentation, Vital Signs Vital Signs: Last Vital Signs Temp 98.0 F 09/28/17 23:37 Pulse 101 H 09/29/17 00:41 Resp 20 09/29/17 00:41 BP 159/84 H 09/28/17 23:37 Pulse Ox 95 09/28/17 23:37 - Medical History PMH: Anemia, Arthritis (hips), Asthma, Bronchitis, Cardia Arrhythmia, CHF, COPD , Crohn's Disease, Gastrointestinal Ulcer (barretts esophagus), Gall Bladder Disease (GALLSTONES), HTN, Hypercholesterolemia, Hypothyroidism, Pancreatitis, Peripheral Edema, Pneumonia, End Stage Renal Disease, Chronic Kidney Disease Denies: Alzheimer's Disease, Anxiety, Bipolar Disorder, Dementia, Depression , Diverticulitis, Emphysema, Fibromyalgia, Fractures, HIV, Hyperthyroidism, Kidney Stones, Migraine, Mitral Valve Prolapse, Osteoporosis, Paranoia, Parkinson's Disease, Post Traumatic Stress Disorder, Schizophrenia, Seizures, Sickle Cell Disease, Sexually Transmitted Disease, Sleep Apnea, TIA Surgical History: Cholecystectomy, Tonsillectomy Denies: Appendectomy, Coronary Stent, Pacemaker - [facility] Procedures (08/23/17) CLOSED ENDOSCOPIC BIOPSY OF LARGE INTESTINE (08/02/11) CONTROL BLEEDING IN GASTROINTESTINAL TRACT, ENDO (02/14/17) CORONAR ARTERIOGR-2 CATH (11/26/13) DRAINAGE OF STOMACH WITH DRAINAGE DEVICE, VIA OPENING (01/04/17) DRESSING TECHNIQUES TREATMENT (02/22/17) DX ULTRASOUND-DIGESTIVE (11/09/14) ESOPHAGOGASTRODUODENOSCOPY [EGD] W/CLOSED BIOPSY (11/09/14) EXCISION OF STOMACH, ENDO, DIAGN (05/08/16) FLUOROSCOPY OF LEFT HEART USING LOW OSMOLAR CONTRAST (02/14/17) FLUOROSCOPY OF MULT COR ART USING L OSM CONTRAST (02/14/17) GAIT TRAINING/AMBULAT TREATMENT USING ASSIST EQUIPMENT (02/22/17) GROOMING/PERSONAL HYGIENE TREATMENT (02/22/17) HEMODIALYSIS (05/25/14) INJECT/INFUSE NEC (12/11/14) INSERT INTERCOSTAL CATH (07/14/13) INSPECTION OF UPPER INTESTINAL TRACT, ENDO (06/04/17) INTRAOPER CHOLANGIOGRAM (05/25/14) INTRODUCE OF OTH THERAP SUBST INTO RESP TRACT, VIA OPENING (03/23/17) LAPAROSCOP LYSIS-PERITONEAL ADHES (05/25/14) LAPAROSCOPIC CHOLECYSTECTOMY (05/25/14) LAPAROSCOPIC INCISIONAL HERNIA REPAIR W GRAFT OR PROSTHESIS (10/26/14) LEFT HEART CARDIAC CATH (11/26/13) LT HEART ANGIOCARDIOGRAM (11/26/13) MEASURE CARDIAC SAMPL & PRESSURE, BILATERAL, PERC (02/14/17) NEBULIZER THERAPY (06/28/13) PACKED CELL TRANSFUSION (07/14/13) PERFORMANCE OF URINARY FILTRATION, MULTIPLE (11/01/16) PERICARDIAL BIOPSY (07/14/13) PERICARDIOTOMY (07/14/13) REMOVE INT FIX DEV-FEMUR (11/25/12) SOFT TISSUE INCISION NEC (01/05/14) THERAPEUTIC ERYTHROCYTAPHERESIS (07/14/13) THERAPEUTIC EXERCISE TREATMENT OF MUSCULOSK WHOLE (02/22/17) TRANSFUSE NONAUT RED BLOOD CELLS IN PERIPH VEIN, PERC (08/23/17) ULTRASONOGRAPHY OF RIGHT AND LEFT HEART, TRANSESOPHAGEAL (08/23/17) Family History: States: Unknown Family Hx - Social History Hx Tobacco Use: No Hx Alcohol Use: No Hx Substance Use: No - Immunization History Hx Tetanus Toxoid Vaccination: No Hx Influenza Vaccination: No Hx Pneumococcal Vaccination: No Review Of Systems Constitutional: Negative for: Fever, Chills Cardiovascular: Positive for: Chest Pain. Negative for: Palpitations Respiratory: Positive for: Shortness of Breath. Negative for: Cough Gastrointestinal: Negative for: Nausea, Vomiting, Abdominal Pain Skin: Negative for: Rash Neurological: Negative for: Weakness, Numbness Physical Exam - Physical Exam Appears: Non-toxic, Other (Mild respiratory distress) Skin: Normal Color, Warm, Dry Head: Atraumatic, Normacephalic Eye(s): bilateral: Normal Inspection Oral Mucosa: Moist Neck: Normal ROM, Supple Chest: Symmetrical Cardiovascular: Rhythm Regular, JVD (at 30 degree elevation of head) Respiratory: Rales (mid lung taylor B/L), No Rhonchi, No Wheezing Gastrointestinal/Abdominal: Soft, No Tenderness, No Guarding, No Rebound Extremity: Normal ROM, No Tenderness, Pedal Edema (1,2+ bilateral), Capillary Refill (< 2 seconds) Pulses: Left Dorsalis Pedis: Normal, Right Dorsalis Pedis: Normal Neurological/Psych: Oriented x3, Normal Speech, Normal Cranial Nerves Gait: Steady Past Patient History - Infectious Disease Hx of Infectious Diseases: None - Tetanus Immunizations Tetanus Immunization: Up to Date - Past Medical History & Family History Past Medical History?: Yes - Past Social History Smoking Status: Former Smoker Alcohol: None Drugs: Denies, Inhalants - CARDIAC Hx Cardia Arrhythmia: Yes Hx Congestive Heart Failure: Yes Hx Hypercholesterolemia: Yes Hx Hypertension: Yes Hx Mitral Valve Prolapse: No Hx Pacemaker: No Hx Peripheral Edema: Yes - PULMONARY Hx Asthma: Yes Hx Bronchitis: Yes Hx Chronic Obstructive Pulmonary Disease (COPD): Yes Hx Emphysema: No Hx Pneumonia: Yes Hx Sleep Apnea: No - NEUROLOGICAL Hx Alzheimer's Disease: No Hx Dementia: No Hx Migraine: No Hx Parkinson's Disease: No Hx Seizures: No Hx Transient Ischemic Attacks (TIA): No - HEENT Hx HEENT Problems: Yes Hx Blind: Yes (partial, left eye) - RENAL Hx Chronic Kidney Disease: Yes Hx Kidney Stones: No - ENDOCRINE/METABOLIC Hx Hyperthyroidism: No Hx Hypothyroidism: Yes - HEMATOLOGICAL/ONCOLOGICAL Hx Anemia: Yes Hx Human Immunodeficiency Virus (HIV): No Hx Sickle Cell Disease: No - INTEGUMENTARY Hx Dermatological Problems: Yes (LEFT UPPER ARM SHUNT) Other/Comment: CALCIPHYLAXIS-DRY ROUND RASH ALL OVER HER BODY,ARMS,LEG. BILATERAL DISCOLORED DARK BROWN SKIN.TIGHT. - MUSCULOSKELETAL/RHEUMATOLOGICAL Hx Arthritis: Yes (hips) Hx Fractures: No Hx Osteoporosis: No - GASTROINTESTINAL Hx Crohn's Disease: Yes Hx Diverticulitis: No Hx Gall Bladder Disease: Yes (GALLSTONES) Hx Pancreatitis: Yes - GENITOURINARY/GYNECOLOGICAL Hx Sexually Transmitted Disorders: No - PSYCHIATRIC Hx Anxiety: No Hx Bipolar Disorder: No Hx Depression: No Hx Paranoia: No Hx Post Traumatic Stress Disorder: No Hx Schizophrenia: No Hx Substance Use: No - SURGICAL HISTORY Hx Appendectomy: No Hx Cholecystectomy: Yes Hx Coronary Stent: No Hx Tonsillectomy: Yes - ANESTHESIA Hx Anesthesia Reactions: No Meds Allergies/Adverse Reactions: Allergies Allergy/AdvReac Type Severity Reaction Status Date / Time aspirin Allergy Severe ANAPHYLAXIS Verified 09/28/17 22:30 ciprofloxacin Allergy Severe ANAPHYLAXIS Verified 09/28/17 22:30 Dane And Derivatives Allergy Severe ANAPHYLAXIS Verified 09/28/17 22:30 enalapril Allergy Severe HIVES Verified 09/28/17 22:30 heparin Allergy Severe ANAPHYLAXIS Verified 09/28/17 22:30 latex Allergy Severe ANAPHYLAXIS Verified 09/28/17 22:30 Penicillins Allergy Severe ANAPHYLAXIS Verified 09/28/17 22:30 Sulfa (Sulfonamide Allergy Severe ANAPHYLAXIS Verified 09/28/17 22:30 Antibiotics) levothyroxine sodium Allergy Intermediate RASH Verified 09/28/17 22:31 [From Levoxyl] acetaminophen Allergy Mild RASH Verified 09/28/17 22:31 codeine Allergy Mild RASH Verified 09/28/17 22:31 enoxaparin Allergy Mild RASH Verified 09/28/17 22:31 iodine Allergy Mild RASH Verified 09/28/17 22:31 influenza virus vaccine, Allergy hives Verified 09/28/17 22:31 specific - Medications Medications: Current Medications Carvedilol (Coreg) 3.125 mg PO BID [facility] Last Admin: 09/29/17 17:20 Dose: 3.125 mg Digoxin (Digoxin) 0.125 mg PO [facility] Furosemide (Lasix) 40 mg IVP BID [facility] Last Admin: 09/29/17 17:20 Dose: 40 mg Hydromorphone HCl (Dilaudid) 2 mg PO Q6H PRN PRN Reason: Pain, moderate (4-7) Last Admin: 09/29/17 21:29 Dose: 2 mg Lactic Acid (Lac-Hydrin 12% Lotion (225 G)) 1 gm EXT DAILY [facility] Last Admin: 09/29/17 10:00 Dose: Not Given Lisinopril (Zestril) 2.5 mg PO DAILY [facility] Pantoprazole Sodium (Protonix Ec Tab) 40 mg PO DAILY [facility] Last Admin: 09/29/17 14:28 Dose: 40 mg Rosuvastatin Calcium (Crestor) 20 mg PO HS [facility] Last Admin: 09/29/17 21:29 Dose: 20 mg Sevelamer Carbonate (Renvela) 800 mg PO DAILY [facility] Last Admin: 09/29/17 14:28 Dose: 800 mg Results - Vital Signs Recent Vital Signs: Last Vital Signs Temp 98.1 F 09/29/17 15:00 Pulse 115 H 09/29/17 18:16 Resp 20 09/29/17 15:00 BP 161/83 H 09/29/17 17:20 Pulse Ox 99 09/29/17 15:00 - Labs Result Diagrams: 09/29/17 10:00 09/29/17 10:06 Labs: Laboratory Results - last 24 hr 09/29/17 09/29/17 09/29/17 07:50 10:00 10:06 WBC 6.2 RBC 3.29 L Hgb 8.7 L Hct 26.4 L MCV 80.4 L MCH 26.6 L MCHC 33.0 RDW 19.4 H Plt Count 129 L MPV 7.6 Sodium 141 Potassium 4.9 Chloride 99 Carbon Dioxide 31 H Anion Gap 16 BUN 20 H Creatinine 2.4 H Est GFR ( Amer) 25 Est GFR (Non-Af Amer) 21 POC Glucose (mg/dL) Random Glucose 168 H Calcium 9.5 Total Bilirubin 2.2 H AST 30 ALT 30 Alkaline Phosphatase 927 H Total Creatine Kinase CK-MB (Mass) Troponin I 0.0820 Total Protein 6.0 L Albumin 3.3 L Globulin 2.7 Albumin/Globulin Ratio 1.2 09/29/17 09/29/17 16:12 19:47 WBC RBC Hgb Hct MCV MCH MCHC RDW Plt Count MPV Sodium Potassium Chloride Carbon Dioxide Anion Gap BUN Creatinine Est GFR ( Amer) Est GFR (Non-Af Amer) POC Glucose (mg/dL) 111 H Random Glucose Calcium Total Bilirubin AST ALT Alkaline Phosphatase Total Creatine Kinase 34 CK-MB (Mass) 1.04 Troponin I 0.0850 Total Protein Albumin Globulin Albumin/Globulin Ratio Assessment & Plan - Assessment and Plan (Free Text) Assessment: 57 years old female with hx of Gastritis, CHF, COPD, ESRD on HD. She was transferred from the [facility] for Evaluation and Hemodialysis. The patient refereed going to HD with SOB. While there she developed a Chest pain but was able to complete 3.5hours of dialysis. She was taken to the ED after the RFID STRATEGIST was called for Chest pain and SOB. With the CXR finding of diffuse interstitial infiltrate in whole of both ling taylor, The patient was transferred to the [facility] for further evaluation and Hemodialysis. In this ED the patient was awake , alert, talking in full sentences with no apparent SOB while on the Stretcher and mentioning that she feels improved. #. Chest pain. No Chest pain at this exam. The patient points to the epigastrium as the site of the previous pain, This coulbe due to Gastritis verses pain from cardiac pathology,Follow Troponins - Treat for gastritis #. Acute CHF/Volume overload, Causing the SOB - The patient does not need an Urgent dialysis - [facility] ED gave Lasix and Bumex - Continue Home medication #.ESRD on HD - Consult Nephrology for Dialysis #. HTN - Continue Home mediation #. Hypokalemia - Follow Elecrolytes This patient who is alert and oriented with no Chest pain , SOB , Hypotensive nor Hypertensive is stable, medically and does not need to be admitted to the Intensive Care Unit for treatment. Her Cardiac labs could be done along with scheduled Hemodialysi on the Telemetry floor being monitored. Systolic CHF Non ischemic CMP Life Vest evaluation
[2017-09-30 08:58] LABS: BASO # 0.1 K/uL (0.0-0.2); BASO % 1.4 % (0.0-2.0); EOS # 0.1 K/uL (0.0-0.7); EOS % 0.9 % (0.0-4.0); HEMOGLOBIN 8.6 g/dL (11.0-16.0); LYMPH % 16.4 % (20.0-40.0); MEAN CELL VOLUME 80.8 fL (81.0-99.0); MEAN CORPUSCULAR HEMOGLOBIN 25.8 pg (27.0-31.0); MEAN PLATELET VOLUME 7.2 fL (7.2-11.7); MONO # 0.5 K/uL (0.0-0.8); MONO % 8.7 % (0.0-10.0); NEUT # 4.5 K/uL (1.8-7.0); NEUT % 72.6 % (50.0-75.0); RBC 3.35 Mil/uL (3.80-5.20); RED CELL DISTRIBUTION WIDTH 19.2 % (11.5-14.5); WHITE BLOOD COUNT 6.3 K/uL (4.8-10.8)
[2017-09-30] MEDS: Pantoprazole 40 mg EC Tab PO SCH (09:11)
[2017-09-30 09:18] LABS: ALB/GLOB RATIO 1.2 (1.0-2.1); ALBUMIN 3.2 g/dL (3.5-5.0); CALCIUM 9.5 mg/dl (8.6-10.4)
[2017-09-30] MEDS: Ammonium Lactate 12% Lotion (225 g) EXT SCH (09:18)
--- NOTE | 2017-09-30 12:08 | CP.PCM.PN ---
Subjective - Date & Time of Evaluation Date of Evaluation: 09/30/17 Time of Evaluation: 12:05 - Subjective Subjective: stable dialysis done 09/29 Less dyspneic now- UF 2500ml with HD CXR showed CHF Hg low- will need ESAs no other new complaint Objective - Vital Signs/Intake and Output Vital Signs (last 24 hours): Temp Pulse Resp BP Pulse Ox 97.6 F 101 H 20 155/84 H 99 09/30/17 07:00 09/30/17 08:13 09/30/17 07:00 09/30/17 09:10 09/30/17 07:00 Intake and Output: 09/30/17 09/30/17 06:59 18:59 Intake Total 500 Balance 500 - Medications Medications: Current Medications Carvedilol (Coreg) 3.125 mg PO BID [facility] Last Admin: 09/30/17 09:11 Dose: 3.125 mg Digoxin (Digoxin) 0.125 mg PO MWF [facility] Epoetin Jonathan (Procrit) 10,000 unit IV TTS [facility] Furosemide (Lasix) 40 mg IVP BID [facility] Last Admin: 09/30/17 09:10 Dose: 40 mg Hydromorphone HCl (Dilaudid) 2 mg PO Q6H PRN PRN Reason: Pain, moderate (4-7) Last Admin: 09/29/17 21:29 Dose: 2 mg Lactic Acid (Lac-Hydrin 12% Lotion (225 G)) 1 gm EXT DAILY [facility] Last Admin: 09/30/17 09:18 Dose: 1 gm Lisinopril (Zestril) 2.5 mg PO DAILY [facility] Pantoprazole Sodium (Protonix Ec Tab) 40 mg PO DAILY [facility] Last Admin: 09/30/17 09:11 Dose: 40 mg Rosuvastatin Calcium (Crestor) 20 mg PO HS [facility] Last Admin: 09/29/17 21:29 Dose: 20 mg Sevelamer Carbonate (Renvela) 800 mg PO DAILY [facility] Last Admin: 09/30/17 09:11 Dose: 800 mg - Labs Labs: 09/30/17 08:55 09/30/17 08:55 - Constitutional Appears: No Acute Distress, Chronically Ill - Head Exam Head Exam: ATRAUMATIC, NORMAL INSPECTION - Eye Exam Eye Exam: EOMI, Normal appearance - Neck Exam Neck Exam: Normal Inspection. absent: Tenderness - Respiratory Exam Respiratory Exam: Clear to Ausculation Bilateral, NORMAL BREATHING PATTERN - Cardiovascular Exam Cardiovascular Exam: REGULAR RHYTHM, +S1 - GI/Abdominal Exam GI & Abdominal Exam: Soft. absent: Tenderness - Extremities Exam Extremities Exam: Normal Inspection. absent: Tenderness - Neurological Exam Neurological Exam: Alert, Awake, CN II-XII Intact - Skin Skin Exam: Dry, Warm Assessment and Plan (1) Congestive heart failure Status: Acute (2) Dependence on hemodialysis Status: Acute (3) Hypertension Status: Acute - Assessment and Plan (Free Text) Plan: dialysis TTS with adequate UF Increase BP meds start ESAs check iron stores stop lasix
--- NOTE | 2017-09-30 14:45 | CP.PCM.PN ---
Subjective - Date & Time of Evaluation Date of Evaluation: 09/30/17 Time of Evaluation: 14:44 - Subjective Subjective: Internal Medicine Progress Note - Dr Acosta Service Patient seen and examined at bedside. Per nursing no acute events overnight. Patient states that shortness of breath has improved. She reports going to dialysis on Saturday and Saturday. Prior to admission, she denies missing any dialysis sessions. Denies headaches, dizziness, cp, palpitations, sob, abdominal pain, urinary symptoms, changes in bowel habits. Objective - Vital Signs/Intake and Output Vital Signs (last 24 hours): Temp Pulse Resp BP Pulse Ox 97.6 F 101 H 20 155/84 H 100 09/30/17 07:00 09/30/17 08:13 09/30/17 07:00 09/30/17 09:10 09/30/17 13:58 Intake and Output: 09/30/17 09/30/17 06:59 18:59 Intake Total 500 Balance 500 - Medications Medications: Current Medications Carvedilol (Coreg) 6.25 mg PO BID [facility] Digoxin (Digoxin) 0.125 mg PO MWF [facility] Epoetin Jonathan (Procrit) 10,000 unit IV TTS [facility] Hydromorphone HCl (Dilaudid) 2 mg PO Q6H PRN PRN Reason: Pain, moderate (4-7) Last Admin: 09/29/17 21:29 Dose: 2 mg Lactic Acid (Lac-Hydrin 12% Lotion (225 G)) 1 gm EXT DAILY [facility] Last Admin: 09/30/17 09:18 Dose: 1 gm Pantoprazole Sodium (Protonix Ec Tab) 40 mg PO DAILY [facility] Last Admin: 09/30/17 09:11 Dose: 40 mg Rosuvastatin Calcium (Crestor) 20 mg PO HS [facility] Last Admin: 09/29/17 21:29 Dose: 20 mg Sevelamer Carbonate (Renvela) 800 mg PO DAILY [facility] Last Admin: 09/30/17 09:11 Dose: 800 mg - Labs Labs: 09/30/17 08:55 09/30/17 08:55 - Constitutional Appears: Non-toxic, No Acute Distress - Head Exam Head Exam: ATRAUMATIC, NORMAL INSPECTION, NORMOCEPHALIC - Eye Exam Eye Exam: EOMI, Normal appearance Pupil Exam: NORMAL ACCOMODATION - ENT Exam ENT Exam: Mucous Membranes Moist - Neck Exam Neck Exam: Full ROM - Respiratory Exam Respiratory Exam: Decreased Breath Sounds, NORMAL BREATHING PATTERN. absent: Rales, Rhonchi, Wheezes - Cardiovascular Exam Cardiovascular Exam: REGULAR RHYTHM, +S1, +S2 - GI/Abdominal Exam GI & Abdominal Exam: Soft, Normal Bowel Sounds. absent: Guarding, Rigid, Tenderness - Rectal Exam Rectal Exam: Deferred - Extremities Exam Extremities Exam: Calf Tenderness Additional comments: Left AVF +thrill, +bruit, distal pulses intact - Neurological Exam Neurological Exam: Alert, Awake, Oriented x3 - Psychiatric Exam Psychiatric exam: Normal Affect, Normal Mood - Skin Skin Exam: Dry, Normal Color, Warm Assessment and Plan - Assessment and Plan (Free Text) Assessment: A/P: 57 year old female with past medical history of ESRD on HD T//, CHF, COPD presented to the ED for worsening shortness of breath and chest pain Acute on Chronic Systolic Heart Failure -Dyspnea is improving -BNP on admission 342,000 -Troponins negative -CXR 09/29: diffuse increased interstitial infiltrates likely representing sequela of pulmonary edema; rule out fluid overload and/or CHF -Last echo 08/2017 showed EF 25%, moderate to severe mitral regurg, Pulmonary HTN -Continue Lasix 40mg IVP BID, Coreg 6.25mg PO BID, Digoxin 0.125mg MWF -Patient may need life vest -Cardiology on consult, help appreciated -PT eval ordered ESRD on HD -Continue HD as scheduled -Continue Renvela 800mg PO daily -Nephrology on consult, help appreciated Anemia of Chronic Disease -Hgb stable at 8.6, asymptomatic Hypertension -Increased Coreg 6.25mg PO BID -Continue to monitor Hyperlipidemia -Continue Crestor 20mg PO HS Bilateral Calf Pain -Lower extremity Dopplers ordered to r/o DVT GI/DVT ppx: -Protonix 40mg PO daily Plan discussed with Dr Dave Huntley DO PGY-2
[2017-09-30 17:17] VITALS: PULSE 105
[2017-09-30] MEDS ORDERED: Digoxin 125 mcg (0.125 mg) Tab PO SCH (18:00)
--- NOTE | 2017-09-30 19:53 | CARD ---
APPROVED REPORT EKG Measurement Heart [id number] <Conclusion> Sinus tachycardia Minimal voltage criteria for LVH, may be normal variant Septal infarct, age undetermined ST & T wave abnormality, consider lateral ischemia Abnormal ECG
--- NOTE | 2017-09-30 23:19 | CARD ---
APPROVED REPORT EKG Measurement Heart [id number] <Conclusion> Sinus tachycardia Left ventricular hypertrophy with repolarization abnormality Abnormal ECG
--- NOTE | 2017-09-30 23:50 | CP.PCM.PN ---
Subjective - Date & Time of Evaluation Date of Evaluation: 09/30/17 Time of Evaluation: 12:05 - Subjective Subjective: Patient seen and evaluated Breathing better Review Of Systems Constitutional: Negative for: Fever, Chills Cardiovascular: Positive for: Chest Pain. Negative for: Palpitations Respiratory: Positive for: Shortness of Breath. Negative for: Cough Gastrointestinal: Negative for: Nausea, Vomiting, Abdominal Pain Skin: Negative for: Rash Neurological: Negative for: Weakness, Numbness Physical Exam - Physical Exam Appears: Non-toxic, Other (Mild respiratory distress) Skin: Normal Color, Warm, Dry Head: Atraumatic, Normacephalic Eye(s): bilateral: Normal Inspection Oral Mucosa: Moist Neck: Normal ROM, Supple Chest: Symmetrical Cardiovascular: Rhythm Regular, JVD (at 30 degree elevation of head) Respiratory: Rales (mid lung taylor B/L), No Rhonchi, No Wheezing Gastrointestinal/Abdominal: Soft, No Tenderness, No Guarding, No Rebound Extremity: Normal ROM, No Tenderness, Pedal Edema (1,2+ bilateral), Capillary Refill (< 2 seconds) Pulses: Left Dorsalis Pedis: Normal, Right Dorsalis Pedis: Normal Neurological/Psych: Oriented x3, Normal Speech, Normal Cranial Nerves Gait: Steady Objective - Vital Signs/Intake and Output Vital Signs (last 24 hours): Temp Pulse Resp BP Pulse Ox 97.7 F 99 H 20 150/82 98 09/30/17 15:00 09/30/17 16:33 09/30/17 15:00 09/30/17 15:00 09/30/17 15:00 Intake and Output: 09/30/17 10/01/17 18:59 06:59 Intake Total 600 Balance 600 - Medications Medications: Current Medications Carvedilol (Coreg) 6.25 mg PO BID [facility] Last Admin: 09/30/17 17:16 Dose: 6.25 mg Digoxin (Digoxin) 0.125 mg PO MWF [facility] Last Admin: 09/30/17 17:17 Dose: 0.125 mg Epoetin Jonathan (Procrit) 10,000 unit IV TTS [facility] Hydromorphone HCl (Dilaudid) 2 mg PO Q6H PRN PRN Reason: Pain, moderate (4-7) Last Admin: 09/30/17 18:49 Dose: 2 mg Lactic Acid (Lac-Hydrin 12% Lotion (225 G)) 1 gm EXT DAILY [facility] Last Admin: 09/30/17 09:18 Dose: 1 gm Pantoprazole Sodium (Protonix Ec Tab) 40 mg PO DAILY [facility] Last Admin: 09/30/17 09:11 Dose: 40 mg Rosuvastatin Calcium (Crestor) 20 mg PO HS [facility] Last Admin: 09/30/17 21:20 Dose: 20 mg Sevelamer Carbonate (Renvela) 800 mg PO DAILY [facility] Last Admin: 09/30/17 09:11 Dose: 800 mg - Labs Labs: 09/30/17 08:55 09/30/17 08:55 Assessment and Plan - Assessment and Plan (Free Text) Assessment: 57 years old female with hx of Gastritis, CHF, COPD, ESRD on HD. She was transferred from the [facility] for Evaluation and Hemodialysis. The patient refereed going to HD with SOB. While there she developed a Chest pain but was able to complete 3.5hours of dialysis. She was taken to the ED after the CORPORATE BUYER was called for Chest pain and SOB. With the CXR finding of diffuse interstitial infiltrate in whole of both ling taylor, The patient was transferred to the [facility] for further evaluation and Hemodialysis. In this ED the patient was awake , alert, talking in full sentences with no apparent SOB while on the Stretcher and mentioning that she feels improved. #. Chest pain. No Chest pain at this exam. The patient points to the epigastrium as the site of the previous pain, This coulbe due to Gastritis verses pain from cardiac pathology,Follow Troponins - Treat for gastritis #. Acute CHF/Volume overload, Causing the SOB - The patient does not need an Urgent dialysis - [facility] ED gave Lasix and Bumex - Continue Home medication #.ESRD on HD - Consult Nephrology for Dialysis #. HTN - Continue Home mediation #. Hypokalemia - Follow Elecrolytes This patient who is alert and oriented with no Chest pain , SOB , Hypotensive nor Hypertensive is stable, medically and does not need to be admitted to the Intensive Care Unit for treatment. Her Cardiac labs could be done along with scheduled Hemodialysi on the Telemetry floor being monitored. Systolic CHF Non ischemic CMP Life Vest evaluation
--- NOTE | 2017-10-01 05:25 | HP ---
HISTORY OF PRESENT ILLNESS: A 57-year-old female with history of , hypertension, heart failure. Chief complaint shortness of breath and weakness. The patient has dialysis on the day of admission, starting have shortness of breath afterwards. Came to the ER, advised admission. The patient PHYSICAL EXAMINATION: GENERAL: The patient is awake, alert and oriented. VITAL SIGNS: Temperature 98, pulse 90. HEENT: Within normal limits. NECK: Supple. CHEST: Symmetrical. HEART: Regular. ABDOMEN: Soft. EXTREMITIES: No edema. IMPRESSION: The patient suffers from congestive heart failure, renal failure. Patient get bed rest, dialysis, cardiology evaluation. Wild Acosta MD
[2017-10-01 06:38] LABS: BASO # 0.1 K/uL (0.0-0.2); BASO % 1.7 % (0.0-2.0); EOS # 0.1 K/uL (0.0-0.7); EOS % 1.5 % (0.0-4.0); HEMOGLOBIN 8.2 g/dL (11.0-16.0); LYMPH # 0.9 K/uL (1.0-4.3); LYMPH % 16.2 % (20.0-40.0); MEAN CELL VOLUME 80.4 fL (81.0-99.0); MEAN CORPUSCULAR HEMOGLOBIN 26.3 pg (27.0-31.0); MEAN CORPUSCULAR HGB CONC 32.7 g/dL (33.0-37.0); MEAN PLATELET VOLUME 7.6 fL (7.2-11.7); MONO # 0.4 K/uL (0.0-0.8); MONO % 7.6 % (0.0-10.0); NEUT # 4.1 K/uL (1.8-7.0); NRBC % 0.1 % (0.0-2.0); RBC 3.14 Mil/uL (3.80-5.20); RED CELL DISTRIBUTION WIDTH 18.9 % (11.5-14.5); WHITE BLOOD COUNT 5.6 K/uL (4.8-10.8)
[2017-10-01 06:46] LABS: ALB/GLOB RATIO 1.2 (1.0-2.1); ALBUMIN 3.1 g/dL (3.5-5.0); CALCIUM 9.2 mg/dl (8.6-10.4)
--- NOTE | 2017-10-01 09:01 | CP.PCM.PN ---
Subjective - Date & Time of Evaluation Date of Evaluation: 10/01/17 Time of Evaluation: 09:01 - Subjective Subjective: Internal Medicine Progress Note - Dr Acosta Service Patient seen and examined at bedside. Per nursing no acute events overnight. Patient is doing well, tolerating dialysis. She states that the life vest in uncomfortable. Offers no other complaints at this time. Denies headaches, dizziness, cp, palpitations, sob, abdominal pain, urinary symptoms. Objective - Vital Signs/Intake and Output Vital Signs (last 24 hours): Temp Pulse Resp BP Pulse Ox 97.5 F L 95 H 20 160/85 H 99 10/01/17 07:47 10/01/17 08:52 10/01/17 07:47 10/01/17 07:47 10/01/17 07:47 Intake and Output: 10/01/17 10/01/17 06:59 18:59 Intake Total 600 200 Balance 600 200 - Medications Medications: Current Medications Carvedilol (Coreg) 6.25 mg PO BID COUNTS INCLUDE 234 BEDS AT THE [facility] Last Admin: 09/30/17 17:16 Dose: 6.25 mg Digoxin (Digoxin) 0.125 mg PO MWF COUNTS INCLUDE 234 BEDS AT THE [facility] Last Admin: 09/30/17 17:17 Dose: 0.125 mg Epoetin Jonathan (Procrit) 10,000 unit IV TTS COUNTS INCLUDE 234 BEDS AT THE [facility] Hydromorphone HCl (Dilaudid) 2 mg PO Q6H PRN PRN Reason: Pain, moderate (4-7) Last Admin: 09/30/17 18:49 Dose: 2 mg Lactic Acid (Lac-Hydrin 12% Lotion (225 G)) 1 gm EXT DAILY COUNTS INCLUDE 234 BEDS AT THE [facility] Last Admin: 09/30/17 09:18 Dose: 1 gm Pantoprazole Sodium (Protonix Ec Tab) 40 mg PO DAILY COUNTS INCLUDE 234 BEDS AT THE [facility] Last Admin: 09/30/17 09:11 Dose: 40 mg Rosuvastatin Calcium (Crestor) 20 mg PO HS COUNTS INCLUDE 234 BEDS AT THE [facility] Last Admin: 09/30/17 21:20 Dose: 20 mg Sevelamer Carbonate (Renvela) 800 mg PO DAILY COUNTS INCLUDE 234 BEDS AT THE [facility] Last Admin: 09/30/17 09:11 Dose: 800 mg - Labs Labs: 10/01/17 06:15 10/01/17 06:15 - Additional Findings Additional findings: - Constitutional Appears: Non-toxic, No Acute Distress - Head Exam Head Exam: ATRAUMATIC, NORMAL INSPECTION, NORMOCEPHALIC - Eye Exam Eye Exam: EOMI, Normal appearance Pupil Exam: NORMAL ACCOMODATION - ENT Exam ENT Exam: Mucous Membranes Moist - Neck Exam Neck Exam: Full ROM - Respiratory Exam Respiratory Exam: Decreased Breath Sounds, NORMAL BREATHING PATTERN. absent: Rales, Rhonchi, Wheezes - Cardiovascular Exam Cardiovascular Exam: REGULAR RHYTHM, +S1, +S2 - GI/Abdominal Exam GI & Abdominal Exam: Soft, Normal Bowel Sounds. absent: Guarding, Rigid, Tenderness - Rectal Exam Rectal Exam: Deferred - Extremities Exam Extremities Exam: Calf Tenderness Additional comments: Left AVF +thrill, +bruit, distal pulses intact - Neurological Exam Neurological Exam: Alert, Awake, Oriented x3 - Psychiatric Exam Psychiatric exam: Normal Affect, Normal Mood - Skin Skin Exam: Dry, Normal Color, Warm Assessment and Plan - Assessment and Plan (Free Text) Assessment: A/P: 57 year old female with past medical history of ESRD on HD T/Th/S, CHF, COPD presented to the ED for worsening shortness of breath and chest pain Acute on Chronic Systolic Heart Failure -Dyspnea is improving -BNP on admission 342,000 -Troponins negative -CXR 09/29: diffuse increased interstitial infiltrates likely representing sequela of pulmonary edema; rule out fluid overload and/or CHF -Last echo 08/2017 showed EF 25%, moderate to severe mitral regurg, Pulmonary HTN -Lasix discontinued -Continue Coreg 6.25mg PO BID, Digoxin 0.125mg MWF -Patient received life vest last night -Cardiology on consult, help appreciated -PT eval ordered - recommending [facility] for disposition ESRD on HD -Continue HD as scheduled -Continue Renvela 800mg PO daily -Nephrology on consult, help appreciated Anemia of Chronic Disease -Hgb stable at 8.2, asymptomatic Hypertension -Continue Coreg 6.25mg PO BID -Continue to monitor Hyperlipidemia -Continue Crestor 20mg PO HS Bilateral Calf Pain -Lower extremity Dopplers negative for PE GI/DVT ppx: -Protonix 40mg PO daily DISPO: Patient is medically cleared for discharge. Patient to continue medications as prescribed and follow up with her Employee Communications Intern (Dr Bledsoe) and PMD within 1 week. Plan discussed with Dr Dave Huntley DO PGY-2
[2017-10-01] MEDS: Pantoprazole 40 mg EC Tab PO SCH (09:41)
[2017-10-01] MEDS: Ammonium Lactate 12% Lotion (225 g) EXT SCH (09:42)
[2017-10-01] MEDS ORDERED: Epoetin Alfa 10,000 unit/ml Dialysis IV SCH (10:00)
--- NOTE | 2017-10-01 10:21 | CP.PCM.PN ---
Subjective - Date & Time of Evaluation Date of Evaluation: 10/01/17 Time of Evaluation: 10:19 - Subjective Subjective: for dialysis now BP sl elevated- monitor post HD Hg low- ESAs to start less dyspneic, no CPs no n, v, f, c, diarrhea Objective - Vital Signs/Intake and Output Vital Signs (last 24 hours): Temp Pulse Resp BP Pulse Ox 97.5 F L 95 H 20 160/85 H 99 10/01/17 07:47 10/01/17 08:52 10/01/17 07:47 10/01/17 07:47 10/01/17 07:47 Intake and Output: 10/01/17 10/01/17 06:59 18:59 Intake Total 600 200 Balance 600 200 - Medications Medications: Current Medications Carvedilol (Coreg) 6.25 mg PO BID [facility] Last Admin: 10/01/17 09:43 Dose: Not Given Digoxin (Digoxin) 0.125 mg PO MWF [facility] Last Admin: 09/30/17 17:17 Dose: 0.125 mg Epoetin Jonathan (Procrit) 10,000 unit IV TTS [facility] Hydromorphone HCl (Dilaudid) 2 mg PO Q6H PRN PRN Reason: Pain, moderate (4-7) Last Admin: 09/30/17 18:49 Dose: 2 mg Lactic Acid (Lac-Hydrin 12% Lotion (225 G)) 1 gm EXT DAILY [facility] Last Admin: 10/01/17 09:42 Dose: 1 gm Pantoprazole Sodium (Protonix Ec Tab) 40 mg PO DAILY [facility] Last Admin: 10/01/17 09:41 Dose: 40 mg Rosuvastatin Calcium (Crestor) 20 mg PO HS [facility] Last Admin: 09/30/17 21:20 Dose: 20 mg Sevelamer Carbonate (Renvela) 800 mg PO TID [facility] - Labs Labs: 10/01/17 06:15 10/01/17 06:15 - Constitutional Appears: No Acute Distress, Chronically Ill - Head Exam Head Exam: ATRAUMATIC, NORMAL INSPECTION - Eye Exam Eye Exam: EOMI, PERRL - Neck Exam Neck Exam: Normal Inspection. absent: Tenderness - Respiratory Exam Respiratory Exam: Clear to Ausculation Bilateral, NORMAL BREATHING PATTERN - Cardiovascular Exam Cardiovascular Exam: REGULAR RHYTHM, +S1 - GI/Abdominal Exam GI & Abdominal Exam: Soft. absent: Tenderness - Extremities Exam Extremities Exam: Normal Inspection. absent: Tenderness - Neurological Exam Neurological Exam: Alert, CN II-XII Intact - Skin Skin Exam: Dry, Warm Assessment and Plan (1) Congestive heart failure Status: Acute (2) Dependence on hemodialysis Status: Acute (3) Hypertension Status: Acute - Assessment and Plan (Free Text) Plan: dialysis TTS Monitor HTN adequate UF start EPO
--- NOTE | 2017-10-01 11:29 | VASCLAB ---
PROCEDURE: Lower Extremity Venous Duplex Exam. HISTORY: Calf pain, Shortness of breath, r/o dvt PRIORS: None. TECHNIQUE: Bilateral common femoral, femoral, popliteal and posterior tibial, peroneal and great saphenous veins were evaluated. Flow was assessed with color Doppler, compressibility, assessment of phasic flow and augmentation response. Report prepared by GILES Lowery FINDINGS: RIGHT: 1. Common Femoral Vein: 1.1. Compressibility - Fully compressible: Thrombus - None : Flow - Phasic: Augmentation -Normal: Reflux - None. 2. Femoral Vein: 2.1. Compressibility - Fully compressible: Thrombus - None : Flow - Phasic: Augmentation -Normal: Reflux - None. 3. Popliteal Vein: 3.1. Compressibility - Fully compressible: Thrombus - None : Flow - Phasic: Augmentation -Normal: Reflux - None. 4. Posterior Tibial Vein: 4.1. Compressibility - Fully compressible: Thrombus - None: Flow - Phasic: Augmentation -Normal: Reflux - None. 5. Peroneal Vein: 5.1. Compressibility - Fully compressible: Thrombus - None: Flow - Phasic: Augmentation -Normal: Reflux - None. 6. Great Saphenous Vein: 6.1. Compressibility - Fully compressible: Thrombus - None: Flow - Phasic: Augmentation - Normal: Reflux - None. LEFT: 1. Common Femoral Vein: 1.1. Compressibility - Fully compressible: Thrombus - None: Flow - Phasic: Augmentation -Normal: Reflux - None. 2. Femoral Vein: 2.1. Compressibility - Fully compressible: Thrombus - None: Flow - Phasic: Augmentation -Normal: Reflux - None. 3. Popliteal Vein: 3.1. Compressibility - Fully compressible: Thrombus - None : Flow - Phasic: Augmentation -Normal: Reflux - None. 4. Posterior Tibial Vein: 4.1. Compressibility - Fully compressible: Thrombus - None: Flow - Phasic: Augmentation -Normal: Reflux - None. 5. Peroneal Vein: 5.1. Compressibility - Fully compressible: Thrombus - None: Flow - Phasic: Augmentation -Normal: Reflux - None. 6. Great Saphenous Vein: 6.1. Compressibility - Fully compressible: Thrombus - None: Flow - Phasic: Augmentation - Normal: Reflux - None. OTHER FINDINGS: Right: None significant. Left: None significant. IMPRESSION: No evidence of deep or superficial vein thrombosis in bilateral lower extremities. Pulsatile venous flow noted bilaterally.
[2017-10-01 14:21] VITALS: BP 152/87; PULSE 89; RESP 18; TEMP 97.3; O2SAT 98
--- NOTE | 2017-10-01 20:38 | CP.PCM.PN ---
Subjective - Date & Time of Evaluation Date of Evaluation: 10/01/17 Time of Evaluation: 16:20 - Subjective Subjective: Patient seen and evaluated Breathing better Review Of Systems Constitutional: Negative for: Fever, Chills Cardiovascular: Positive for: Chest Pain. Negative for: Palpitations Respiratory: Positive for: Shortness of Breath. Negative for: Cough Gastrointestinal: Negative for: Nausea, Vomiting, Abdominal Pain Skin: Negative for: Rash Neurological: Negative for: Weakness, Numbness Physical Exam - Physical Exam Appears: Non-toxic, Other (Mild respiratory distress) Skin: Normal Color, Warm, Dry Head: Atraumatic, Normacephalic Eye(s): bilateral: Normal Inspection Oral Mucosa: Moist Neck: Normal ROM, Supple Chest: Symmetrical Cardiovascular: Rhythm Regular, JVD (at 30 degree elevation of head) Respiratory: Rales (mid lung taylor B/L), No Rhonchi, No Wheezing Gastrointestinal/Abdominal: Soft, No Tenderness, No Guarding, No Rebound Extremity: Normal ROM, No Tenderness, Pedal Edema (1,2+ bilateral), Capillary Refill (< 2 seconds) Pulses: Left Dorsalis Pedis: Normal, Right Dorsalis Pedis: Normal Neurological/Psych: Oriented x3, Normal Speech, Normal Cranial Nerves Gait: Steady Objective - Vital Signs/Intake and Output Vital Signs (last 24 hours): Temp Pulse Resp BP Pulse Ox 97.3 F L 89 18 152/87 H 98 10/01/17 13:35 10/01/17 13:35 10/01/17 13:35 10/01/17 13:35 10/01/17 13:35 Intake and Output: 10/01/17 10/02/17 18:59 06:59 Intake Total 600 Balance 600 - Medications Medications: Current Medications Carvedilol (Coreg) 6.25 mg PO BID [facility] Last Admin: 10/01/17 17:17 Dose: 6.25 mg Digoxin (Digoxin) 0.125 mg PO MWF [facility] Last Admin: 09/30/17 17:17 Dose: 0.125 mg Epoetin Jonathan (Procrit) 10,000 unit IV TTS [facility] Last Admin: 10/01/17 11:20 Dose: 10,000 unit Hydromorphone HCl (Dilaudid) 2 mg PO Q6H PRN PRN Reason: Pain, moderate (4-7) Last Admin: 09/30/17 18:49 Dose: 2 mg Lactic Acid (Lac-Hydrin 12% Lotion (225 G)) 1 gm EXT DAILY [facility] Last Admin: 10/01/17 09:42 Dose: 1 gm Pantoprazole Sodium (Protonix Ec Tab) 40 mg PO DAILY [facility] Last Admin: 10/01/17 09:41 Dose: 40 mg Rosuvastatin Calcium (Crestor) 20 mg PO HS [facility] Last Admin: 09/30/17 21:20 Dose: 20 mg Sevelamer Carbonate (Renvela) 800 mg PO TIDCC [facility] Last Admin: 10/01/17 17:17 Dose: 800 mg - Labs Labs: 10/01/17 06:15 10/01/17 06:15 Assessment and Plan - Assessment and Plan (Free Text) Assessment: 57 years old female with hx of Gastritis, CHF, COPD, ESRD on HD. She was transferred from the [facility] for Evaluation and Hemodialysis. The patient refereed going to HD with SOB. While there she developed a Chest pain but was able to complete 3.5hours of dialysis. She was taken to the ED after the SUPPLY SPECIALIST was called for Chest pain and SOB. With the CXR finding of diffuse interstitial infiltrate in whole of both ling taylor, The patient was transferred to the [facility] for further evaluation and Hemodialysis. In this ED the patient was awake , alert, talking in full sentences with no apparent SOB while on the Stretcher and mentioning that she feels improved. #. Chest pain. No Chest pain at this exam. The patient points to the epigastrium as the site of the previous pain, This coulbe due to Gastritis verses pain from cardiac pathology,Follow Troponins - Treat for gastritis #. Acute CHF/Volume overload, Causing the SOB - The patient does not need an Urgent dialysis - [facility] ED gave Lasix and Bumex - Continue Home medication #.ESRD on HD - Consult Nephrology for Dialysis #. HTN - Continue Home mediation #. Hypokalemia - Follow Elecrolytes This patient who is alert and oriented with no Chest pain , SOB , Hypotensive nor Hypertensive is stable, medically and does not need to be admitted to the Intensive Care Unit for treatment. Her Cardiac labs could be done along with scheduled Hemodialysi on the Telemetry floor being monitored. Systolic CHF Non ischemic CMP Patient on LifeVest F/U with Dr. Bledsoe
--- NOTE | 2017-10-07 06:56 | DS ---
Ms. Gold was admitted to the emergency room with complaints of fatigue, weakness and tiredness. The patient came to the ER ____ advised admission. The patient was placed on bed rest, supportive care, IV fluids. The patient showed gradual improvement. Discharged to be followed up as outpatient. Wild Acosta MD
--- NOTE | 2017-10-07 16:42 | IP.NPCORE ---
Heart Failure Core Measure - Heart Failure Ejection Fraction: Less Than 40 % Contraindication/Reason for not providing: ESRD Beta-Arvin Prescribed: Carvedilol Angiotensin II Receptor Arvin Prescribed: No Contraindication/Reason for not providing: ESRD AnticoagulationTherapy for Atrial Fibrillation/Atrialflutter: No Contraindication/Reason for not providing: NO HSX OF AFIB Aldosterone Antagonist Prescribed: No Contraindication/Reason for not providing: NOT INDICATED BY THE FIRE EXTINGUISHER TESTER Hydralazine Nitrate Prescribed: No Contraindication/Reason for not providing: NOT INDICATED BY THE FIRE EXTINGUISHER TESTER Implantable Cardioverter Defibrillator Therapy: No Contraindication/Reason for not providing: PATIENT HAS A LIVEFEST Cardiac Resynchronization Therapy Prescribed: No Contraindication/Reason for not providing: PATIENT HAS A LIFEVEST - Follow up Will be discharged to: Home Follow Up Date (must be within 7 days from discharge): 10/10/17 Follow Up Time: 09:00
== END 2017-10-01 21:32 | disposition home or self-care (01) | DRG 291 ==
LOC: C.ER 22:07 → C.5S 23:36
PROVIDERS: ADMIT Internal Medicine Pulmonary Disease; ATTEND Internal Medicine Pulmonary Disease
PROC: 5A1D70Z Performance of Urinary Filtration, Intermittent, Less than 6 Hours Per Day (ICD-10-PCS; principal; 2017-09-29)
DX: I13.2 Hypertensive heart and chronic kidney disease with heart failure and with stage 5 chronic kidney disease, or end stage renal disease (principal); J18.9 Pneumonia, unspecified organism; N18.6 End stage renal disease; I50.23 Acute on chronic systolic (congestive) heart failure; J44.0 Chronic obstructive pulmonary disease with (acute) lower respiratory infection; K50.90 Crohn's disease, unspecified, without complications; K86.1 Other chronic pancreatitis; I42.9 Cardiomyopathy, unspecified; D63.8 Anemia in other chronic diseases classified elsewhere; E03.9 Hypothyroidism, unspecified; E78.00 Pure hypercholesterolemia, unspecified; E87.6 Hypokalemia; Z99.2 Dependence on renal dialysis; I27.20 Pulmonary hypertension, unspecified; I34.0 Nonrheumatic mitral (valve) insufficiency; K22.70 Barrett's esophagus without dysplasia; K74.60 Unspecified cirrhosis of liver; Z87.891 Personal history of nicotine dependence; L81.9 Disorder of pigmentation, unspecified